=== PATIENT | female | born 1985 | race Caucasian/White ===

== ENCOUNTER 2023-11-15 20:43 | Emergency (ER) | payer BC, SELFPAY ==
--- NOTE | ~2023-11-15 | XR_ITS ---
EXAMINATION: XR ankle RT min 3V DATE: 11/15/2023 21:31 INDICATION: Right ankle injury and pain. TECHNIQUE: 4 views of right ankle were obtained. COMPARISON: None. FINDINGS: There is an oblique fracture of distal fibula. The medial aspect of the fracture line is 2 mm distal to the level of the tibial plafond. The distal fracture fragment demonstrates 2 mm posterol ateral displacement. Joint spaces are normal. There are enthesophytes at the posterior and plantar as pects of calcaneal tuberosity. Ankle soft tissue swelling is noted. IMPRESSION: 1. Oblique fracture of distal fibula. Reviewed, dictated and finalized at location E.
--- NOTE | ~2023-11-15 | XR_ITS ---
EXAMINATION: XR foot RT min 3V DATE: 11/15/2023 21:32 INDICATION: Right ankle pain. Injury. TECHNIQUE: 4 views of right foot were obtained. COMPARISON: None. FINDINGS: There is an oblique fracture of distal fibula. The distal fracture fragment demonstrates 2 mm posterolateral displacement. There is a possible nondisplaced oblique fracture of base of fourth m etatarsal. There is mild osteoarthritis of first metatarsophalangeal joint. There are enthesophytes a t the posterior and plantar aspects of calcaneal tuberosity. IMPRESSION: 1. Oblique fracture of distal fibula. 2. Possible nondisplaced oblique fracture of base of fourth metatarsal. Correlate for point tendernes s. Reviewed, dictated and finalized at location E. IMPRESSION: 1. Oblique fracture of distal fibula. 2. Possible nondisplaced oblique fracture of base of fourth metatarsal. Correla te for point tenderness.
[2023-11-15 20:45] VITALS: BP 117/64; PULSE 105; RESP 18; TEMP 36.7; O2SAT 96
--- NOTE | 2023-11-15 20:46 | ED.LOWEXIN ---
HPI - Extremity Injury (Lower) General Chief Complaint: Extremity Injury, Lower Stated Complaint: R ankle Injury Time Seen by Provider: 11/15/23 20:45 History of Present Illness HPI Narrative: Patient is a 38 year old female here with an ankle injury. She notes about 1 hour prior to arrival she was walking with flip flops and everted her right ankle. She denies falling to the ground. She is currently complaining of swelling and pain to her right ankle. Pain is located on the lateral aspect of his right ankle and worse with applying weight to the foot and attempting to walk. Pain currently 8/10. She did not take any pain medication prior arrival. She denies prior orthopedic injuries. She just completed her menstrual cycle yesterday and denies chance of being . She denies additional injuries. Related Data Allergies Allergy/AdvReac Type Severity Reaction Status Date / Time No Known Allergies Allergy Verified 11/15/23 20:50 Review of Systems Review of Systems: All systems reviewed & are unremarkable except as noted in HPI and below Exam Narrative: GENERAL: Well-appearing, well-nourished, and in no acute distress. HEAD: Normocephalic, atraumatic. HEART: Normal peripheral pulses. EXTREMITIES: Normal range of motion. Tenderness to the lateral aspect of the right ankle with edema and faint bruising present. Tenderness present to the midfoot along the metatarsals as well without any obvious deformity or swelling. SKIN: Warm, dry, no rash. NEURO: No focal deficits. Alert and oriented x3. Course Course Emergency Course: Chart review performed. Patient is here for right ankle injury. Triage vitals show tachycardia, otherwise normal. Patient seen evaluated, nontoxic appearing. She does have some pain and swelling in her lateral ankle. Differentials include fracture versus sprain. X-rays ordered as well as pain medication. Will additionally do x-ray of foot as she does have some tenderness throughout the distal metatarsals. X-ray shows fibular head fracture which is nondisplaced. Will place her in a short posterior splint, recommend nonweightbearing and crutch use and close follow with Orthopedic surgery. Normal PMS after splint placement. She is advised to ice, rest, elevate the foot. The results of pertinent diagnostic studies and exam findings were discussed. The patient?s provisional diagnosis and plan of care were discussed with the patient and present family. The patient and/or present family expressed understanding of the diagnosis and plan. The nurse was instructed to provide written instructions and appropriate follow-up information. The patient understands their need and responsibility to obtain additional follow-up as instructed. The risks of medications administered and prescribed were discussed with the patient and family present. Vital Signs Vital signs: Vital Signs Temperature 98.0 F 11/15/23 20:45 Pulse Rate 105 H 11/15/23 20:45 Respiratory Rate 18 11/15/23 20:45 Blood Pressure 117/64 11/15/23 20:45 Pulse Oximetry 96 11/15/23 20:45 Oxygen Delivery Room Air 11/15/23 20:45 Temperature 98.0 F 11/15/23 20:45 Pulse Rate 105 H 11/15/23 20:45 Respiratory Rate 18 11/15/23 20:45 Blood Pressure 117/64 11/15/23 20:45 Pulse Oximetry 96 11/15/23 20:45 Oxygen Delivery Room Air 11/15/23 20:45 MDM - Extremity Injury (Lower) Imaging Data Radiologist's impression: ITS Impressions Ankle X-Ray 11/15/23 21:33 IMPRESSION: 1. Oblique fracture of distal fibula. Foot X-Ray 11/15/23 21:34 IMPRESSION: 1. Oblique fracture of distal fibula. 2. Possible nondisplaced oblique fracture of base of fourth metatarsal. Correlate for point tenderness. Discharge Plan Discharge Clinical Impression: Closed fibular fracture Qualifiers: Encounter type: initial encounter Fibula location: distal Fracture morphology: unspecified fracture morphology Laterality: rig
[2023-11-15] MEDS: HYDROcodone/acetaminophen (*CRX) 5-325 MG TABLET 1 TAB PO (21:23)
[2023-11-15 22:47] VITALS: BP 134/78; PULSE 87; RESP 18; TEMP 36.9; O2SAT 97
== END 2023-11-15 22:47 | disposition home or self-care (01) ==
PROVIDERS: Emergency Provider Student in an Organized Health Care Education/Training Program; PCP Family Medicine
DX: S82.831A Other fracture of upper and lower end of right fibula, initial encounter for closed fracture (principal); X50.0XXA Overexertion from strenuous movement or load, initial encounter
CPT/HCPCS: 29515; 73610; 73630; 99284; A9270

== ENCOUNTER 2023-12-31 08:40 | Outpatient (CLI) | payer BC, SELFPAY ==
--- NOTE | ~2023-12-31 | XR_ITS ---
Right ankle Technique: AP, oblique, and lateral views were obtained. Clinical History: Pain, fracture COMPARISON: 11/15/2023 Findings: Oblique fracture of the distal fibula is stable in alignment from prior exam. There is mini mal callus formation. Osseous alignment is unchanged.. Ankle mortise and other visualized joint space s are preserved. Soft tissues are otherwise unremarkable. Impression: Mild interval healing of oblique fracture of the distal fibula since prior exam. Reviewed, dictated and finalized at location M. Impression: Mild interval healing of oblique fracture of the distal fibula since prior exam .
--- NOTE | ~2023-12-31 | XR_ITS ---
Right foot Technique: AP, oblique, and lateral views were obtained. Clinical History: Pain Findings: No acute fracture or dislocation is seen. Osseous alignment is anatomic. Joint spaces are p reserved without erosive or degenerative change. Soft tissues are unremarkable. Impression: No acute abnormality seen. Possible healed fracture deformity the proximal fourth metatarsal shaft. Reviewed, dictated and finalized at location . Impression: No acute abnormality seen. Possible healed fracture deformity the proximal four th metatarsal shaft.
== END 2023-12-31 08:41 | disposition home or self-care (01) ==
LOC: CHSIMG 08:43
PROVIDERS: PCP Family Medicine; Visit Provider Orthopaedic Surgery
DX: S82.431D Displaced oblique fracture of shaft of right fibula, subsequent encounter for closed fracture with routine healing (principal); M79.671 Pain in right foot; M25.571 Pain in right ankle and joints of right foot
CPT/HCPCS: 73610; 73630

== ENCOUNTER 2024-06-04 07:59 | Emergency (ER) | payer BC, SELFPAY ==
[2024-06-04] VITALS (12 sets, daily range): BP systolic 108–131; BP diastolic 46–74; PULSE 68–110; RESP 20; TEMP 36.7–36.9; O2SAT 96–100
[2024-06-04 08:25] LABS: Basophils Absolute Auto 0.02 K/mm3 (0.00-0.10); Basophils Percent Auto 0.5 % (0.0-1.0); Eosinophils Absolute Auto 0.06 K/mm3 (0.02-0.50); Eosinophils Percent Auto 1.4 % (1.0-6.0); Hematocrit 40.9 % (35.0-49.0); Hemoglobin 13.6 g/dL (12.0-15.0); Immature Granulocyte Absolute 0.01 K/mm3 (0.00-0.00); Immature Granulocyte Percent A 0.2 % (0.0-0.0); Lymphocytes Absolute Auto 0.86 K/mm3 (1.10-4.50); Mean Corpuscular HGB Conc 33.3 g/dL (32-36); Mean Corpuscular Hemoglobin 30.8 pg (27.0-31.0); Mean Corpuscular Volume 92.5 fL (78.0-102.0); Mean Platelet Volume 9.7 fl (9.2-11.8); Monocytes Percent Auto 11.7 % (2.0-11.0); Neutrophils Absolute Auto 2.84 K/mm3 (1.70-7.20); Neutrophils Percent Auto 66.2 % (50.0-70.0); Platelet Count Result 184 K/mm3 (150-420); Red Blood Count 4.42 M/mm3 (4.20-5.40); Red Cell Distribution Width 12.1 % (11.6-14.4); White Blood Count 4.3 K/mm3 (4.8-10.8)
[2024-06-04] MEDS: SODIUM CHLORIDE 0.9% IV 1,000 ML 999 ML IV CONT (08:27)
[2024-06-04] MEDS: ONDANSETRON INJ 4 MG/2 ML VIAL IV PUSH (08:28)
[2024-06-04 09:00] LABS: Influenza A QL RT-PCR Positive (Negative); Influenza B QL RT-PCR Negative (Negative); RSV RNA, RT-PCR Negative (Negative); SARS-CoV-2 RNA PCR Negative (Negative)
[2024-06-04 09:02] LABS: Alanine Aminotransferase 15 U/L (14-59); Albumin Level 3.5 g/dL (3.4-5.0); Alkaline Phosphatase 65 U/L (46-116); Anion Gap 11 mmol/L (4-12); Aspartate Amino Transferase 14 U/L (15-37); Bilirubin,Total 0.3 mg/dL (0.00-1.00); Blood Urea Nitrogen 6 mg/dL (7-18); Calcium 8.2 mg/dL (8.5-10.1); Carbon Dioxide 25 mmol/L (21-32); Chloride 101 mmol/L (98-108); Estimated CRCL calculation 87 ml/min; Estimated Glomerular Filt Rate > 60; Glucose 98 mg/dL (70-99); Osmolality Calculated 281 mOsm/kg (285-295); Potassium 3.4 mmol/L (3.5-5.1); Sodium 137 mmol/L (136-145); Total Protein 6.6 g/dL (6.4-8.2)
--- NOTE | 2024-06-04 09:02 | ED_ITS ---
HPI - Nausea/Vomiting/Diarrhea General Chief complaint: Nausea/Vomiting/Diarrhea Stated complaint: vomiting blood Time Seen by Provider: 06/04/24 08:10 Source: patient Mode of arrival: ambulatory Limitations: no limitations History of Present Illness HPI Narrative: This is a 38-year-old female with no significant past medical history presents with a one-day history of nausea vomiting diarrhea body aches crampy abdominal pain with low-grade fevers nasal congestion nonproductive cough. MD elicited complaint: nausea, vomiting and diarrhea Onset (ago): day(s) Description of vomiting: watery and blood-streaked Associated nausea: Yes Associated abdominal pain: Yes Related Data Allergies Allergy/AdvReac Type Severity Reaction Status Date / Time No Known Allergies Allergy Verified 06/04/24 08:04 Review of Systems 2 Review of Systems: All systems reviewed & are unremarkable except as noted in HPI and below PMFSH Past Medical History Medical History Patient denies medical problems Social History Social History Smoking status: Current every day smoker Exam 2 Const: General: healthy appearing and no acute distress Nutritional Appearance: well nourished Orientation/consciousness: patient oriented x3 Limitations: no limitations HENMT: Other: nasal congestion Eyes: Conjunctivae: conjunctivae normal Neck: Neck: normal visual inspection, no lymphadenopathy and no meningeal signs Chest: Chest palpation & inspection: normal inspection of the chest Resp: Effort & Inspection: normal respiratory effort Auscultation: clear to auscultation bilaterally Cardio: Rate: regular rate Rhythm: regular rhythm GI: GI Palp: Yes Soft to palpation Auscultation: normal bowel sounds Urinary Catheter: Urinary Catheter: patent and draining Skin: General skin exam: normal color Rashes: no rashes Wounds: no wounds Neuro: General: patient oriented x3 Course Course Emergency Course: patient received IV fluids along with IV Zofran blood counts reviewed and patient is positive for influenza and will send a dose of Tamiflu to patient's local pharmacy. Vital Signs Vital signs: Vital Signs Temperature 36.7 C 06/04/24 07:59 Pulse Rate 110 H 06/04/24 07:59 Respiratory Rate 20 06/04/24 07:59 Blood Pressure 131/46 L 06/04/24 07:59 Pulse Oximetry 100 06/04/24 07:59 Oxygen Delivery Room Air 06/04/24 07:59 Temperature 36.7 C 06/04/24 07:59 Pulse Rate 110 H 06/04/24 07:59 Respiratory Rate 20 06/04/24 07:59 Blood Pressure 131/46 L 06/04/24 07:59 Pulse Oximetry 100 06/04/24 07:59 Oxygen Delivery Room Air 06/04/24 07:59 MDM - Nausea/Vomiting/Diarrhea Lab Data 06/04/24 08:21 06/04/24 08:21 Labs: Lab Results 06/04/24 Range/Units 08:21 WBC 4.3 L (4.8-10.8) K/mm3 RBC 4.42 (4.20-5.40) M/mm3 Hgb 13.6 (12.0-15.0) g/dL Hct 40.9 (35.0-49.0) % MCV 92.5 (78.0-102.0) fL MCH 30.8 (27.0-31.0) pg MCHC 33.3 (32-36) g/dL RDW 12.1 (11.6-14.4) % Plt Count 184 (150-420) K/mm3 MPV 9.7 (9.2-11.8) fl Immature Gran % (Auto) 0.2 H (0.0-0.0) % Neut % (Auto) 66.2 (50.0-70.0) % Lymph % (Auto) 20.0 (18.0-42.0) % [place] % (Auto) 11.7 H (2.0-11.0) % Eos % (Auto) 1.4 (1.0-6.0) % Baso % (Auto) 0.5 (0.0-1.0) % Lymph # (Auto) 0.86 L (1.10-4.50) K/mm3 [place] # (Auto) 0.50 (0.10-0.90) K/mm3 Eos # (Auto) 0.06 (0.02-0.50) K/mm3 Baso # (Auto) 0.02 (0.00-0.10) K/mm3 Abs Immat Gran (auto) 0.01 H (0.00-0.00) K/mm3 Absolute Neuts (auto) 2.84 (1.70-7.20) K/mm3 Absolute Nucleated RBC 0.00 (0.00-0.00) K/mm3 Nucleated RBC % 0.0 (0-0.0) % Sodium Pending Potassium Pending Chloride Pending Carbon Dioxide Pending Anion Gap Pending BUN Pending Creatinine Pending Estim Creat Clear Calc Pending Estimated GFR Pending Glucose Pending Calculated Osmolality Pending Calcium Pending Total Bilirubin Pending AST Pending ALT Pending Alkaline Phosphatase Pending Total Protein Pending Albumin Pending Influenza A (RT-PCR) Positive A (Negative) Influenza B (RT-PCR) Negative (Negative) RSV (RT-PCR) Negative (Negative) SARS-CoV-2 RNA (RT-PCR) Negative (Negative) Critical Care Time Critical Care Time Critical Care Time: No Discharge Plan Discharge Clinical Impression: Gastroenteritis, Influenza Patient Disposition: Home, Self-Care Condition: Stable Instructions: Antibiotic Form, Influenza (ED), Gastroenteritis (ED) Additional Instructions: take medication as prescribed and follow up with primary within next week for further evaluation treatment. Patient Language: Khmer Prescriptions: No Action ondansetron 4 mg tablet,disintegrating 4 mg PO Q6H PRN (Reason: nausea and vomiting) Qty: 10 0RF hydrocodone-acetaminophen 5-325 mg tablet 1 tablet PO Q6H PRN (Reason: pain) Qty: 20 0RF Follow-up/Referrals: Shree Martini M.D. [Primary Care Provider] -
== END 2024-06-04 09:21 | disposition home or self-care (01) ==
PROVIDERS: Emergency Provider Emergency Medicine; PCP Family Medicine
DX: J10.1 Influenza due to other identified influenza virus with other respiratory manifestations (principal); K52.9 Noninfective gastroenteritis and colitis, unspecified; F17.200 Nicotine dependence, unspecified, uncomplicated; Z20.822 Contact with and (suspected) exposure to COVID-19
CPT/HCPCS: 36415; 80053; 85025; 87637; 96361; 96374; 99284; J2405; J7030